=== PATIENT | male | born 1970 | race Caucasian/White ===

== ENCOUNTER 2022-06-05 01:14 | Emergency (ER) | payer BC ==
[2022-06-05] MEDS ORDERED: Sodium Chloride 0.9% 10 ML Syringe FLUSH PRN (01:47)
[2022-06-05] MEDS ORDERED: LORazepam 2 MG/ML SDV IVPUSH ONE (01:48)
[2022-06-05] MEDS ORDERED: Aspirin 81 MG Tab.Chew PO ONE (01:48)
[2022-06-05] MEDS ORDERED: Sodium Chloride 0.9% 1,000 ML IV SCH (02:00)
[2022-06-05 02:32] LABS: ESTIMATED GFR 72 mL/min (>60); TROPONIN I HIGH SENSITIVITY 6.9 pg/ml (<=60.4)
[2022-06-05] MEDS ORDERED: Potassium Chloride Riders 10 MEQ in Premix Bag 1 BAG IV ONE (02:49)
[2022-06-05] MEDS ORDERED: Potassium Chloride Riders 50 ML ONE (03:05)
== END 2022-06-05 04:27 | disposition home or self-care (01) ==
LOC: LB.ED 01:14
DX: E87.6 Hypokalemia (principal); E83.42 Hypomagnesemia; F41.0 Panic disorder [episodic paroxysmal anxiety]; Z79.899 Other long term (current) drug therapy
CPT/HCPCS: 36415; 71045; 80053; 83735; 83880; 84100; 84484; 85027; 85379; 93005; 96361; 96365; 96367; 96375; 99285-25; A9270-GY; J2060; J3475; J3480; J7030

== ENCOUNTER 2022-06-06 09:05 | Observation (INO) | payer BC ==
[2022-06-06] MEDS ORDERED: Sodium Chloride 0.9% 10 ML Syringe FLUSH PRN (09:44)
[2022-06-06 10:13] LABS: TROPONIN I HIGH SENSITIVITY 6.2 pg/ml (<=60.4)
[2022-06-06] MEDS ORDERED: Potassium Phosphates 3 mMole/ML 15 ML SDV IV STA (11:00)
[2022-06-06] MEDS ORDERED: Sodium Chloride 0.9% 1,000 ML IV SCH (11:15)
[2022-06-06] MEDS ORDERED: LORazepam 2 MG/ML SDV IVPUSH ONE (11:28)
[2022-06-06] MEDS ORDERED: Potassium Phosphates 45 MMOLE in Sodium Chloride 0.9% 250 ML IV ONE (11:30)
[2022-06-06] MEDS ORDERED: LORazepam 2 MG/ML SDV ONE (11:40)
[2022-06-06] MEDS ORDERED: Lactated Ringers 1,000 ML IV SCH (20:00)
[2022-06-07] MEDS ORDERED: LORazepam 1 MG Tab PO ONE (08:35)
== END 2022-06-07 08:55 | disposition home or self-care (01) ==
LOC: LB.ED 09:05 → LB.MS 11:10
PROVIDERS: ADMIT Surgery; ATTEND Surgery
DX: E83.39 Other disorders of phosphorus metabolism (principal); R00.2 Palpitations; K21.9 Gastro-esophageal reflux disease without esophagitis; Z79.899 Other long term (current) drug therapy; Z20.822 Contact with and (suspected) exposure to COVID-19
CPT/HCPCS: 36415; 71045; 80048; 83735; 83880; 84100; 84484; 85027; 85379; 93005; 96361; 96365; 96366; 96375; 99285-25; A9270-GY; J2060; J3490; J7030; J7050; J7120; U0002